=== PATIENT | female | born 1975 | race Caucasian/White ===

== ENCOUNTER → 2020-03-27 | Outpatient (CLI) | payer OTHER ==
--- NOTE | 2020-04-25 11:28 | REP ---
COMPLETE ABDOMINAL ULTRASOUND CLINICAL: Abdominal pain. TECHNIQUE: Real-time martin scale and color Doppler evaluation using curved array transducer. FINDINGS: Liver, spleen, and pancreas are normal in contour, size, and echogenicity. No focal hepatic, splenic, or pancreatic lesion identified. The gallbladder is normal and without gallstones, wall thickening, or pericholecystic fluid. No biliary ductal dilatation is appreciated and the common bile duct measures 6.4 mm in diameter. The bilateral kidneys are normal in reniform shape and appearance without hydronephrosis. Right kidney measures 11.2 x 4.5 x 5.4 cm. Left kidney measures 11.4 x 5.2 x 5.4 cm. Abdominal aorta is normal and measures 2.1 cm maximal diameter. No ascites in the visualized abdomen and pelvis. IMPRESSION: Normal complete abdominal ultrasound MTDD
== END ==
LOC: M RAD 07:07 → EDUNIT# 08:00
PROVIDERS: ATTEND Internal Medicine Hematology & Oncology
DX: D69.6 Thrombocytopenia, unspecified (principal)

== ENCOUNTER → 2022-03-27 | Outpatient (REF) | payer OTHER ==
[2022-03-27 16:29] LABS: APPEARANCE, URINE MANUAL CLEAR (CLEAR); COLOR, URINE MANUAL LT YELLOW (YELLOW)
[2022-03-27 16:30] LABS: BILIRUBIN, URINE MANUAL NEGATIVE (NEGATIVE); BLOOD URINE MANUAL TRACE (NEGATIVE); GLUCOSE, URINE (UA) MANUAL NEGATIVE (NEGATIVE); KETONE, URINE MANUAL NEGATIVE (NEGATIVE); LEUKOCYTE ESTERASE, URINE MAN NEGATIVE (NEGATIVE); NITRITE, URINE MANUAL NEGATIVE (NEGATIVE); PH,URINE MAN 5.5 UNITS (5.0 - 7.0); PROTEIN, URINE MANUAL NEGATIVE (NEGATIVE); UROBILINOGEN, URINE MANUAL NORMAL (NORMAL)
[2022-03-27 16:39] LABS: BASO # 0.1 10^3/uL (0.0-0.2); BASO % 0.6 % (0.0-1.0); EOS # 0.2 10^3/uL (0.0-0.5); EOS % 1.8 % (0.0-3.0); HEMATOCRIT 45.8 % (36.0-47.0); HEMOGLOBIN 14.9 g/dl (12.0-15.5); LYMPH # 1.5 10^3/uL (1.5-5.0); LYMPH % 18.5 % (24.0-44.0); MEAN CORPUSCULAR HEMOGLOBIN 28.9 pg (27.0-33.0); MEAN CORPUSCULAR HGB CONC 32.5 g/dl (32.0-36.5); MEAN CORPUSCULAR VOLUME 88.9 fl (80.0-96.0); MONO # 0.5 10^3/uL (0.0-0.8); MONO % 5.9 % (2.0-8.0); NEUTROPHILS % 72.8 % (36.0-66.0); PLATELET COUNT, AUTOMATED 265 10^3/uL (150-450); RED BLOOD COUNT 5.15 10^6/uL (4.00-5.40); WHITE BLOOD COUNT 8.2 10^3/uL (4.0-10.0)
[2022-03-27 16:54] LABS: SQUAMOUS EPITHELIAL CELL URINE MOD AMOUNT /hpf (SMALL AMT); TRANSITIONAL EPI CELLS, URINE MOD AMOUNT /hpf
[2022-03-27 16:55] LABS: BACTERIA, URINE LARGE AMOUNT; HYALINE CAST, URINE NONE SEEN /lpf (0-1)
[2022-03-27 17:12] LABS: ALBUMIN 3.9 GM/DL (3.2-5.2); ALT/SGPT 31 U/L (12-78); BILIRUBIN,TOTAL 0.3 MG/DL (0.2-1.0); BLOOD UREA NITROGEN 10 MG/DL (7-18); CALCIUM LEVEL 9.8 MG/DL (8.5-10.1); CARBON DIOXIDE LEVEL 24 MEQ/L (21-32); CHLORIDE LEVEL 104 MEQ/L (98-107); COMPLEMENT C3 153 MG/DL (90-180); COMPLEMENT C4 48 MG/DL (10-40); CREATININE FOR GFR 0.59 MG/DL (0.55-1.30); CREATININE,RANDOM URINE 16.6 MG/DL; GLOMERULAR FILTRATION RATE > 60.0 (>58); GLUCOSE, FASTING 84 MG/DL (70-100); POTASSIUM SERUM 4.2 MEQ/L (3.5-5.1); SODIUM LEVEL 135 MEQ/L (136-145); TOTAL PROTEIN 7.4 GM/DL (6.4-8.2); TOTAL PROTEIN,RANDOM URINE < 5.0 MG/DL (0.0-12.0)
[2022-03-27 17:13] LABS: ERYTHROCYTE SEDIMENTATION RATE 11 mm/hr (0-20)
== END ==
LOC: M SFHCRHEU 12:19
PROVIDERS: ATTEND Internal Medicine Rheumatology
DX: R76.8 Other specified abnormal immunological findings in serum (principal); M25.50 Pain in unspecified joint